=== PATIENT | male | born 1950 | race African-American/Black ===

== ENCOUNTER 2017-07-19 10:38 | Emergency (ER) | payer MEDICAID, OTHER ==
[~2017-07-19] VITALS: Ht 182.9 cm; Wt 73.0 kg
[~2017-07-19 10:38] MED LIST: ATORVASTATIN; BENZTROPINE; GEMFIBROZIL; HALDOL; SERTRALINE
[2017-07-19 21:23] VITALS: BP 106/75
== END 2017-07-19 21:23 | disposition home or self-care (01) ==
LOC: ER 11:19
DX: L30.9 Dermatitis, unspecified (principal); L08.9 Local infection of the skin and subcutaneous tissue, unspecified
CPT/HCPCS: 99283